=== PATIENT | female | born 1985 | race Caucasian/White ===

== ENCOUNTER 2017-02-19 20:51 | Emergency (ER) | payer OTHER ==
--- NOTE | 2017-02-19 21:08 | EDPHY ---
H & P Time Seen by Provider: 02/19/17 21:06 HPI/ROS: Chief complaint: Left knee pain HPI: 31-year-old female was playing basketball. She landed while making a shot and felt a pop in the outside of her left knee. She has a history of prior meniscal or ligamentous injuries in the past. She has been able to walk on it with significant discomfort. Denies any other injuries at this time. ROS: 10 point Review of Systems is negative except as noted in the HPI. Exam: General: Awake, alert, no acute distress Left lower extremity: She has no hip pain with full range of motion Knee: She has tenderness along the lateral collateral ligament. There is pain with loading of the medial meniscus. She is able to flex past 90. She has no anterior drawer sign. Is not warm to the touch. Is not significantly swollen. She has 2+ dorsalis pedis pulses. Capillary refills less than 2 sec. Sensations intact in all dermatomes. Skin: No rash - Medical/Surgical History Hx Asthma: No Hx Chronic Respiratory Disease: No Hx Diabetes: No Hx Cardiac Disease: No Hx Renal Disease: No Hx Cirrhosis: No Hx Alcoholism: No Hx HIV/AIDS: No Hx Splenectomy or Spleen Trauma: No Other PMH: knee surgery, UTI, lipo sx in July on abdomen - Social History Smoking Status: Never smoked Constitutional: Initial Vital Signs Temperature (C) 36.8 C 02/19/17 21:03 Heart Rate 75 02/19/17 21:03 Respiratory Rate 16 02/19/17 21:03 Blood Pressure 120/72 02/19/17 21:03 O2 Sat (%) 98 02/19/17 21:03 O2 Delivery Mode Room Air Allergies/Adverse Reactions: No Known Allergies Allergy (Verified 02/19/17 21:10) Home Medications: Medication Instructions Recorded LORazepam [Ativan] 0.5 - 1 mg PO Q6 PRN #12 tablet 02/11/16 Ondansetron Odt [Zofran Odt] 4 - 8 mg PO Q4PRN PRN #4 tab 02/11/16 Medical Decision Making - Diagnostics Imaging Results: Imaging Impressions Knee X-Ray 02/19/17 21:03 Impression: Nothing acute identified. ED Course/Re-evaluation: X-ray negative. Patient has been placed in a knee immobilizer with crutches. As I have personally inspected this and she is comfortable with good immobilization. Will discharge with referral to Orthopedics for follow-up. Departure - Departure Disposition: Home, Routine, Self-Care Clinical Impression: Knee sprain Condition: Good Instructions: Knee Sprain (ED), Crutch Instructions (ED), Knee Immobilizer (ED) Additional Instructions: Follow up with Orthopedics in 4-5 days for further evaluation. Referrals: Annabelle Harmon MD [Primary Care Provider] - As per Instructions Yuri Garcia MD [Medical Doctor] - As per Instructions
[2017-02-19 21:09] VITALS: RESP 16
[2017-02-19 22:18] VITALS: BP 118/63; PULSE 86; TEMP 97.9; O2SAT 94
== END 2017-02-19 22:16 | disposition home or self-care (01) ==
LOC: CED 20:51
DX: S83.92XA Sprain of unspecified site of left knee, initial encounter (principal); X58.XXXA Exposure to other specified factors, initial encounter; Y99.8 Other external cause status; Y93.67 Activity, basketball
CPT/HCPCS: 73564-PO; L1830